=== PATIENT | female | born 1970 | race Caucasian/White ===

== ENCOUNTER 2022-02-18 09:55 | Outpatient (CLI) | payer OTHER, SELFPAY ==
--- NOTE | 2022-02-18 10:49 | W.ANESCHARGE ---
Anesthesia Charges Start Date/Time Anesthesia Start Date: 02/18/22 Anesthesia Start Time: 10:25 Stop Date/Time Anesthesia Stop Date: 02/18/22 Anesthesia Stop Time: 10:45 Summary Emergency: No
--- NOTE | 2022-02-18 11:35 | W.ANESCHARGE ---
Anesthesia Charges Start Date/Time Anesthesia Start Date: 02/18/22 Anesthesia Start Time: 10:25 Stop Date/Time Anesthesia Stop Date: 02/18/22 Anesthesia Stop Time: 10:45 Summary Emergency: No
== END 2022-02-18 09:56 | disposition home or self-care (01) ==
LOC: OP CLINIC 09:56
PROVIDERS: PCP Family Medicine; Visit Provider Internal Medicine
DX: Z12.11 Encounter for screening for malignant neoplasm of colon (principal); Z80.0 Family history of malignant neoplasm of digestive organs
CPT/HCPCS: 45378; 811; 812

== ENCOUNTER 2022-03-08 15:31 | Outpatient (CLI) | payer OTHER, SELFPAY ==
--- NOTE | 2022-03-08 15:45 | CRLHL7_ITS ---
For Patients: As a result of the Century Cures Act, medical imaging exams and procedure reports are released immediately into your electronic medical record. You may view this report before your referring provider. If you have questions, please contact your health care provider. BILATERAL SCREENING MAMMOGRAM WITH COMPUTER-AIDED DETECTION TECHNIQUE: CC and MLO views were obtained. These mammographic images have been obtained using full-field digital technique. These mammographic images were interpreted with the benefit of computer-aided detection. COMPARISON FILM: 01/05/21, 12/31/19, 10/16/18. FINDINGS: There are scattered areas of fibroglandular density IMPRESSION: There is no radiographic evidence for malignancy. ASSESSMENT: BI-RADS Category 1: Negative RECOMMENDATION: Routine screening mammogram in 1 year. A lay language report of this examination will be provided to the patient. Peewee Nielsen M.D. Diagnostic Radiologist [email or web address] RODDY/Dictated by: Peewee Nielsen MD @ 03/09/2022 12:29:00 PM (Electronically Signed)
== END 2022-03-08 15:32 | disposition home or self-care (01) ==
LOC: MAMMO 15:31
PROVIDERS: PCP Family Medicine; Visit Provider Family Medicine
DX: Z12.31 Encounter for screening mammogram for malignant neoplasm of breast (principal)
CPT/HCPCS: 77063; 77067

== ENCOUNTER 2022-04-20 08:08 | Outpatient (CLI) | payer OTHER, SELFPAY ==
[2022-04-20 13:19] LABS: Albumin* 4.6 g/dL (3.3-5.0); Chloride* 103 mmol/L (96-114); Potassium* 3.9 mmol/L (3.6-5.1); Sodium* 140 mmol/L (135-149)
[2022-04-20 13:21] LABS: Creatinine* 0.7 mg/dL (0.5-1.5); Estimated Glomerular Filt Rate 104 ml/min
[2022-04-20 13:22] LABS: Alanine Aminotransferase* 18 U/L (4-35); Alkaline Phosphatase* 110 U/L (40-150); Aspartate Amino Transferase* 22 U/L (12-35); Bilirubin Total* 0.7 mg/dL (0.1-1.5); Blood Urea Nitrogen* 14 mg/dL (7-30); Carbon Dioxide* 28 mmol/L (20-32); Glucose* 85 mg/dL (60-115); Total Protein* 7.4 g/dL (6.0-8.3)
[2022-04-20 13:23] LABS: Calcium* 9.1 mg/dL (8.4-10.6)
== END 2022-04-20 08:09 | disposition home or self-care (01) ==
LOC: FRMREF 08:08
PROVIDERS: PCP Family Medicine; Visit Provider Dermatology
DX: Z79.899 Other long term (current) drug therapy (principal)
CPT/HCPCS: 80053

== ENCOUNTER 2022-07-21 13:48 | Outpatient (CLI) | payer OTHER, SELFPAY ==
[2022-07-21 14:42] LABS: Chloride* 106 mmol/L (96-114); Potassium* 4.9 mmol/L (3.6-5.1); Sodium* 141 mmol/L (135-149)
[2022-07-21 14:44] LABS: Creatinine* 0.7 mg/dL (0.5-1.5); Estimated Glomerular Filt Rate 104 ml/min
[2022-07-21 14:45] LABS: Alanine Aminotransferase* 29 U/L (4-35); Alkaline Phosphatase* 93 U/L (40-150); Aspartate Amino Transferase* 28 U/L (12-35); Bilirubin Total* 0.6 mg/dL (0.1-1.5); Blood Urea Nitrogen* 14 mg/dL (7-30); Carbon Dioxide* 32 mmol/L (20-32); Total Protein* 6.8 g/dL (6.0-8.3)
[2022-07-21 14:46] LABS: Calcium* 9.1 mg/dL (8.4-10.6); Glucose* 97 mg/dL (60-115)
[2022-07-21 15:00] LABS: Albumin* 4.2 g/dL (3.3-5.0)
== END 2022-07-21 13:49 | disposition home or self-care (01) ==
PROVIDERS: PCP Family Medicine; Visit Provider Dermatology
DX: Z79.899 Other long term (current) drug therapy (principal)
CPT/HCPCS: 80053

== ENCOUNTER 2022-10-18 07:21 | Outpatient (CLI) | payer OTHER, SELFPAY | END 2022-10-18 07:22 | disposition home or self-care (01) | LOC: NFLDREF 22:24 | PROVIDERS: PCP Family Medicine; Visit Provider Dermatology | DX: Z01.818 Encounter for other preprocedural examination (principal); Z79.899 Other long term (current) drug therapy | CPT/HCPCS: 80053 ==

== ENCOUNTER 2023-01-17 07:25 | Outpatient (CLI) | payer OTHER, SELFPAY | END 2023-01-17 07:26 | disposition home or self-care (01) | LOC: NFLDREF 16:12 | PROVIDERS: PCP Family Medicine; Referring Provider Family Medicine; Visit Provider Dermatology | DX: Z79.899 Other long term (current) drug therapy (principal) | CPT/HCPCS: 80053 ==

== ENCOUNTER 2023-04-25 07:55 | Outpatient (CLI) | payer OTHER, SELFPAY | END 2023-04-25 07:56 | disposition home or self-care (01) | LOC: NFLDREF 04-26 11:52 | PROVIDERS: PCP Family Medicine; Referring Provider Family Medicine; Visit Provider Dermatology | DX: Z79.899 Other long term (current) drug therapy (principal) | CPT/HCPCS: 80053 ==

== ENCOUNTER 2023-05-31 07:25 | Outpatient (CLI) | payer OTHER, SELFPAY | END 2023-05-31 07:26 | disposition home or self-care (01) | LOC: NFLDREF 06-02 10:45 | PROVIDERS: PCP Family Medicine; Referring Provider Family Medicine; Visit Provider Family Medicine | DX: Z00.00 Encounter for general adult medical examination without abnormal findings (principal); E55.9 Vitamin D deficiency, unspecified; E78.5 Hyperlipidemia, unspecified; R03.0 Elevated blood-pressure reading, without diagnosis of hypertension; Z79.899 Other long term (current) drug therapy | CPT/HCPCS: 80061; 82306 ==

== ENCOUNTER 2023-06-07 15:11 | Outpatient (CLI) | payer OTHER, SELFPAY ==
--- NOTE | 2023-06-07 15:20 | CRLHL7_ITS ---
For Patients: As a result of the Century Cures Act, medical imaging exams and procedure reports are released immediately into your electronic medical record. You may view this report before your referring provider. If you have questions, please contact your health care provider. BILATERAL SCREENING MAMMOGRAM WITH COMPUTER-AIDED DETECTION AND TOMOSYNTHESIS TECHNIQUE: CC and MLO views were obtained. These mammographic images have been obtained using full-field digital technique. These mammographic images were interpreted with the benefit of computer-aided detection. Breast Tomosynthesis was used in this interpretation. COMPARISON FILM: 03/08/22, 01/05/21, 12/31/19. FINDINGS: There are scattered areas of fibroglandular density IMPRESSION: There is no radiographic evidence for malignancy. ASSESSMENT: BI-RADS Category 2: Benign RECOMMENDATION: Routine screening mammogram in 1 year. A lay language report of this examination will be provided to the patient. Peewee Nielsen M.D. Diagnostic Radiologist [email or web address] RODDY/Dictated by: Peewee Nielsen MD @ 06/08/2023 11:38:00 AM (Electronically Signed)
== END 2023-06-07 15:12 | disposition home or self-care (01) ==
LOC: MAMMO 15:12
PROVIDERS: PCP Family Medicine; Visit Provider Family Medicine
DX: Z12.31 Encounter for screening mammogram for malignant neoplasm of breast (principal)
CPT/HCPCS: 77063; 77067

== ENCOUNTER 2023-07-26 08:21 | Outpatient (CLI) | payer OTHER, SELFPAY | END 2023-07-26 08:22 | disposition home or self-care (01) | LOC: NFLDREF 08-02 16:54 | PROVIDERS: PCP Family Medicine; Referring Provider Family Medicine; Visit Provider Family Medicine | DX: E78.5 Hyperlipidemia, unspecified (principal); Z79.899 Other long term (current) drug therapy | CPT/HCPCS: 80061 ==

== ENCOUNTER 2023-08-01 10:21 | Outpatient (CLI) | payer OTHER, SELFPAY | END 2023-08-01 10:22 | disposition home or self-care (01) | LOC: NFLDREF 08-02 06:16 | PROVIDERS: PCP Family Medicine; Referring Provider Family Medicine; Visit Provider Dermatology | DX: Z79.899 Other long term (current) drug therapy (principal) | CPT/HCPCS: 80053 ==

== ENCOUNTER 2023-10-26 07:28 | Outpatient (CLI) | payer OTHER, SELFPAY | END 2023-10-26 07:29 | disposition home or self-care (01) | LOC: NFLDREF 10-27 08:30 | PROVIDERS: PCP Family Medicine; Referring Provider Family Medicine; Visit Provider Dermatology | DX: L40.9 Psoriasis, unspecified (principal); Z79.899 Other long term (current) drug therapy | CPT/HCPCS: 80053 ==

== ENCOUNTER 2024-01-12 13:09 | Outpatient (REF) | payer OTHER, SELFPAY ==
[2024-01-12 13:20] LABS: Basophils Absolute Auto 0.03 K/uL (0.00-0.30); Basophils Percent Auto 0.4 % (0.0-3.0); Eosinophils Percent Auto 1.5 % (0.0-7.0); Hematocrit 44.4 % (33.0-51.0); Hemoglobin* 14.6 gm/dL (12.0-16.0); Immature Granulocytes Abs Auto 0.01 K/uL (0.00-0.30); Immature Granulocytes Pct Auto 0.1 %; Lymphocytes Absolute Auto 1.45 K/uL (0.90-2.90); Lymphocytes Percent Auto 21.4 % (20-44); Mean Corpuscular HGB Conc 33 gm/dL (32-36); Mean Corpuscular Hemoglobin 32 pg (26-34); Mean Corpuscular Volume 97 fL (80-100); Monocytes Percent Auto 10.2 % (0.0-11.0); Neutrophils Absolute Auto 4.51 K/uL (1.7-7.0); Neutrophils Percent Auto 66.4 % (42.0-72.0); Platelet Count* 226 K/uL (140-440); RDW Coefficient of Variation % 12.9 % (11.5-15.5); Red Blood Count 4.59 m/uL (4.00-5.20); White Blood Count* 6.79 K/uL (4.50-11.00)
[2024-01-12 13:21] LABS: Albumin* 4.6 g/dL (3.3-5.0); Chloride* 104 mmol/L (96-114); Potassium* 4.3 mmol/L (3.6-5.1); Slide Review Reflex No; Sodium* 139 mmol/L (135-149)
[2024-01-12 13:23] LABS: Creatinine* 0.7 mg/dL (0.5-1.5); Estimated Glomerular Filt Rate 103 ml/min
[2024-01-12 13:24] LABS: Alanine Aminotransferase* 22 U/L (4-35); Alkaline Phosphatase* 107 U/L (40-150); Anion Gap 7 mEq/L (7-15); Aspartate Amino Transferase* 26 U/L (12-35); Bilirubin Total* 0.8 mg/dL (0.1-1.5); Blood Urea Nitrogen* 17 mg/dL (7-30); Calcium* 9.4 mg/dL (8.4-10.6); Carbon Dioxide* 28 mmol/L (20-32); Glucose* 99 mg/dL (60-115); Total Protein* 7.5 g/dL (6.0-8.3)
== END 2024-01-12 13:10 | disposition home or self-care (01) ==
LOC: NPINS 13:09
PROVIDERS: PCP Family Medicine; Visit Provider Dermatology
DX: Z79.899 Other long term (current) drug therapy (principal)
CPT/HCPCS: 80053; 85025

== ENCOUNTER 2024-06-18 08:14 | Outpatient (CLI) | payer OTHER, SELFPAY ==
--- NOTE | 2024-06-18 08:15 | CRLHL7_ITS ---
For Patients: As a result of the Century Cures Act, medical imaging exams and procedure reports are released immediately into your electronic medical record. You may view this report before your referring provider. If you have questions, please contact your health care provider. BILATERAL SCREENING MAMMOGRAM WITH COMPUTER-AIDED DETECTION AND TOMOSYNTHESIS TECHNIQUE: CC and MLO views were obtained. These mammographic images have been obtained using full-field digital technique. These mammographic images were interpreted with the benefit of computer-aided detection. Breast Tomosynthesis was used in this interpretation. COMPARISON FILM: 06/07/23, 03/08/22, 01/05/21. FINDINGS: There are scattered areas of fibroglandular density. IMPRESSION: There is no radiographic evidence for malignancy. ASSESSMENT: BI-RADS Category 1: Negative RECOMMENDATION: Routine screening mammogram in 1 year. A lay language report of this examination will be provided to the patient. Peewee Nielsen M.D. Diagnostic Radiologist [email or web address] SP/Dictated by: Peewee Nielsen MD @ 06/18/2024 10:38:00 AM (Electronically Signed)
== END 2024-06-18 08:15 | disposition home or self-care (01) ==
LOC: MAMMO 08:15
PROVIDERS: PCP Family Medicine; Visit Provider Family Medicine
DX: Z12.31 Encounter for screening mammogram for malignant neoplasm of breast (principal)
CPT/HCPCS: 77063; 77067

== ENCOUNTER 2024-07-31 08:08 | Outpatient (CLI) | payer OTHER, SELFPAY | END 2024-07-31 08:09 | disposition home or self-care (01) | LOC: NFLDREF 08-03 13:24 | PROVIDERS: PCP Family Medicine; Referring Provider Family Medicine; Visit Provider Family Medicine | DX: R03.0 Elevated blood-pressure reading, without diagnosis of hypertension (principal); E55.9 Vitamin D deficiency, unspecified; E78.5 Hyperlipidemia, unspecified; Z79.899 Other long term (current) drug therapy; R74.8 Abnormal levels of other serum enzymes | CPT/HCPCS: 80053; 80061; 82306 ==

== ENCOUNTER 2024-09-05 14:30 | Outpatient (RCR) | payer OTHER, SELFPAY ==
--- NOTE | 2024-08-27 09:53 | OT.OPOE ---
OT Outpatient Ortho Eval OT Outpatient Ortho Eval* Start: 08/27/24 08:34 Freq: Status: Active Protocol: Document 08/27/24 08:34 CSS (Rec: 08/27/24 09:37 CSS [id number]) E-signed By Jessica Allen, OTR/L OT OP Ortho Eval Details Complexity Complexity Low Insurance Information Insurance Information [facility] Outpatient History/Precautions Current Condition/Medical Diagnosis Referring Provider Dr. Lock Medical Diagnoses M79.642- pain in left hand Treatment Diagnosis M79.642- pain in left hand M25.342- hand instability(left ) M79.646- pain in thumb (left) Date of Onset February 2024 Other Conditions had carpal tunnel approx 22 years ago when with 4th child Medical/Functional History Medical History Reviewed Yes: partial hysterectomy in 2022 Prior Level of Function/Mobility indep with ADLs/IADLs Social History Employment Status Sign [employer] Employed Current Occupation banking center manager Ortho Subjective Subjective Subjective Pt notes approx 6 months of pain in L dominant thumb. 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 Notes numbness in L hand and entire hand. Numbness happens once every couple of weeks and doesn't appear to have a reason or activity that makes it numb. Pt notes sometimes repositioning hand can help reduce numbness symptoms. Pain Assessment Pain Pain Yes Pain Comments L hand at rest: 0/10 L hand with touch: 2/10 (doesn 't typically exceed 2/10 but can be constant pain). Range of Motion and Strength Wrist Range of Motion and Strength Wrist Range of Motion and Strength B wrist and digits WNL Hand Pinch/Manual Arts Therapist Strength Hand Pinch/Manual Arts Therapist Strength Hand Pinch/Manual Arts Therapist Strength Left Hand,Right Hand Left Hand Manual Arts Therapist Strength Position 1 in Elbow 72 Flexion (lbs) Lateral Pinch Strength (lbs) 19 Three Point Pinch (lbs) 15 Tip Pinch Strength (lbs) 16 Right Hand Manual Arts Therapist Strength Position 1 in Elbow 75 Flexion (lbs) Lateral Pinch Strength (lbs) 18 Three Point Pinch (lbs) 19 Tip Pinch Strength (lbs) 14 OT Objective Data Hand Hand Dominance Left Sensation Sensation Assessment Summary Comments numbness in L hand primarily; not numb today. Happens more so at night/AM. Pt note she feels like she curls up at night and demonstrates flexed wrist and digits of LUE. Upper Extremity Special Tests Median Nerve-Carpal Tunnel Wrist Phalen Test Negative Left,Negative Right Wrist Tinel Test Negative Left,Negative Right Ulnar Nerve Froment's Sign Negative Left,Negative Right OT Problems Problems Other Problems Writing,Sleeping Patient Potential Excellent Assessment Assessment Assessment Pt is a 53 year old female who is referred to OT for L hand pain. 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 She reports pain, weakness, and numbness which can impact job duties as well as sleep. Pt would benefit from ongoing skilled OT to address deficits to promote indep with function of L dominant hand. Occupational Therapy Treatment Plan - OP Potential Rehabilitation Potential Excellent Set Goals Goals Set with Patient Yes Goals Goals Goals to be met by October 22, 2024: 1) Pt will have L dairy nutrition specialist strength increased to 80# or more in order to promote function of L dominant hand. 2) Pt will note decreased no episodes of numbness and tingling in L hand for 2 consistent weeks. 3) Pt will demonstrate competency of HEP in order to progress towards goals. Treatment Plan Treatment Plan Evaluation,Edema Control,Joint Mobilization,Manual Therapy, Splinting,Ultrasound, Therapeutic Exercise, Therapeutic Activities,Self Care/Home Management,Education Expected Frequency 1-2x Week Expected Duration 6-8 Weeks Home Program Home Program Home Program Initiated Home Program Specifics L thumb AROM exercises and strengthening exercises; thumb theraputty exercises; heat on L thumb for pain management Certification Certification Statement I Certify That: Therapy Services Provided, Therapy Plan Established, Therapy Plan Reviewed Certification Information Clinic ID # [id number] Initial Certification Date 08/27/24 Recertification Due Date 10/22/24 Provider Signature Required Yes Provider Signature Shows Agreement With POC & Medical Necessity Physician NPI Number Write NPI# Here Physician Comment/Change Comment or Changes Physician Signature & Date Requested Please Sign/Date Here
--- NOTE | 2024-10-23 10:10 | REH.OT ---
D/C from OT. Pt was progressing and did not feel she required more visits, however POC was left open until October 22 in case pt had ongoing questions or concerns. No further OT warranted at this time.
== END 2024-10-23 10:19 | disposition home or self-care (01) ==
PROVIDERS: PCP Family Medicine; Visit Provider Family Medicine
DX: M79.642 Pain in left hand (principal); M25.342 Other instability, left hand; M79.646 Pain in unspecified finger(s); Z51.89 Encounter for other specified aftercare
CPT/HCPCS: 97035; 97110; 97165; X5282

== ENCOUNTER 2025-04-17 07:42 | Outpatient (CLI) | payer OTHER, SELFPAY ==
[2025-04-17 14:20] LABS: Hepatitis B Surface Antigen* Negative (Negative)
[2025-04-17 14:38] LABS: Hepatitis C Virus Antibody* Negative (Negative)
[2025-04-17 14:43] LABS: Hepatitis B Surface Antibody* Negative (Negative)
[2025-04-18 19:46] LABS: Hepatitis B Core Antibody, IgM Negative (Negative)
== END 2025-04-17 07:43 | disposition home or self-care (01) ==
LOC: NPINS 07:43
PROVIDERS: PCP Family Medicine; Visit Provider Dermatology
DX: Z11.1 Encounter for screening for respiratory tuberculosis (principal); Z79.899 Other long term (current) drug therapy; Z11.59 Encounter for screening for other viral diseases
CPT/HCPCS: 86480; 86705; 86706; 86803; 87340

== ENCOUNTER 2025-07-04 08:00 | Outpatient (CLI) | payer OTHER, SELFPAY ==
--- NOTE | 2025-07-04 08:15 | CRLHL7_ITS ---
For Patients: As a result of the Century Cures Act, medical imaging exams and procedure reports are released immediately into your electronic medical record. You may view this report before your referring provider. If you have questions, please contact your health care provider. INDICATION: BILATERAL SCREENING MAMMOGRAM, ASYMPTOMATIC 54 Y/O FEMALE COMPARISON: 06/18/2024, 06/07/2023, 03/08/2022 TECHNIQUE: Digital mammogram in CC and MLO projections including computer-aided detection (CAD) and tomosynthesis. BREAST COMPOSITION: There are scattered areas of fibroglandular density. FINDINGS: No suspicious findings. ASSESSMENT: BI-RADS 1 Negative RECOMMENDATION: Annual screening mammogram. A lay language report of this examination will be provided to the patient. Dictated by: Peewee Nielsen MD @ 07/04/2025 09:40:14 (Electronically Signed)
== END 2025-07-04 08:01 | disposition home or self-care (01) ==
LOC: MAMMO 08:00
PROVIDERS: PCP Family Medicine; Visit Provider Internal Medicine
DX: Z12.31 Encounter for screening mammogram for malignant neoplasm of breast (principal)
CPT/HCPCS: 77063; 77067